=== PATIENT | female | born 1960 | race Caucasian/White ===

== ENCOUNTER 2018-04-17 12:42 | Emergency (ER) | payer BC ==
[2018-04-17] MEDS ORDERED: NS 0.9% 1000 ML* 1,000 ML IV ONE (13:00)
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
[2018-04-17 13:38] LABS: ABS Basophils 0 10^3/ul (0-0.2); ABS Eosinophils 0 10^3/ul (0-0.6); ABS Lymphocytes 0.6 10^3/ul (1.0-4.8); ABS Monocytes 0.4 10^3/ul (0-0.8); ABS Neutrophils 7.4 10^3/ul (1.5-7.7); ABS Nucleated RBC 0 10^3/ul; Eosinophil % 0 % (0-6); Hematocrit 38 % (35-47); Hemoglobin 12.8 g/dl (12.0-16.0); Lymphocyte % 7.4 % (25-47); Mean Corpuscular HGB Conc 34 g/dl (31-36); Mean Corpuscular Hemoglobin 32 pg (27-31); Mean Corpuscular Volume 94 fL (80-97); Mean Platelet Volume 7.7 um3 (7.4-10.4); Nucleated Red Blood Cells % 0; Platelet Count 132 10^3/ul (150-450); Red Blood Count 4.02 10^6/ul (4.00-5.40); Red Cell Distribution Width 13 % (10.5-15); White Blood Count 8.5 10^3/ul (3.5-10.8)
[2018-04-17 13:44] LABS: INR 0.94 (0.77-1.02)
[2018-04-17] MEDS ORDERED: Iohexol 300* (CONTRAST) 10 ML SDV IV ONE (14:22)
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
[2018-04-17] MEDS ORDERED: Ketorolac INJ* 30 MG/ML 1 ML VIAL IV PUSH ONE (17:00)
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
[2018-04-17 18:01] VITALS: BP 123/74
== END 2018-04-17 18:01 | disposition home or self-care (01) ==
LOC: ED 12:42
DX: S42.102A Fracture of unspecified part of scapula, left shoulder, initial encounter for closed fracture (principal); S00.81XA Abrasion of other part of head, initial encounter; S20.319A Abrasion of unspecified front wall of thorax, initial encounter; V18.4XXA Pedal cycle driver injured in noncollision transport accident in traffic accident, initial encounter; Y93.55 Activity, bike riding; Y92.488 Other paved roadways as the place of occurrence of the external cause; E04.1 Nontoxic single thyroid nodule
CPT/HCPCS: 36415; 70450; 70486; 71260; 72125; 74177; 80053; 83605; 85025; 85610; 86850; 86900; 86901; 96361; 96374; 99284; J1885; Q9967